=== PATIENT | male | born 1940 | race African-American/Black ===

== ENCOUNTER 2024-06-27 21:45 | Emergency (ER) | payer BC, MEDICARE ==
[~2024-06-27] VITALS: Ht 180.3 cm; Wt 90.0 kg
[2024-06-27 21:48] VITALS: O2SAT 98
[2024-06-27] MEDS: KETOROLAC 30MG/ML VIAL IV STA (22:44)
[2024-06-28 02:00] VITALS: BP 131/68; PULSE 62; RESP 14; TEMP 36.6; O2SAT 97
[2024-06-28] MEDS ORDERED: IBUP-2029 MT (02:26)
== END 2024-06-28 03:43 | disposition home or self-care (01) ==
LOC: ER 21:45
DX: S39.012A Strain of muscle, fascia and tendon of lower back, initial encounter (principal); S80.02XA Contusion of left knee, initial encounter; S00.511A Abrasion of lip, initial encounter; E11.9 Type 2 diabetes mellitus without complications; I10 Essential (primary) hypertension; W01.0XXA Fall on same level from slipping, tripping and stumbling without subsequent striking against object, initial encounter; Y93.89 Activity, other specified; Y92.89 Other specified places as the place of occurrence of the external cause; Y99.8 Other external cause status
CPT/HCPCS: 99284; 96374; 29505; 73552; 72100; 73560; 73590; J1885